=== PATIENT | male | born 1970 | race Caucasian/White ===

== ENCOUNTER 2022-11-05 09:05 | Day surgery (SDC) | payer OTHER ==
[~2022-11-05] VITALS: Ht 182.9 cm; Wt 118.0 kg
[~2022-11-05 09:05] MED LIST: IBUP600 PO; META800 PO
[2022-11-05] MEDS ORDERED: LOSA25 (09:45)
[2022-11-05] MEDS ORDERED: MONT4 (09:45)
== END 2022-11-05 11:53 | disposition home or self-care (01) ==
LOC: ORSCSDS 09:05
PROVIDERS: Internal Medicine Gastroenterology
PROC: 0DBH8ZX Excision of Cecum, Via Natural or Artificial Opening Endoscopic, Diagnostic (ICD-10-PCS; principal; 2022-11-05 10:30)
DX: Z12.11 Encounter for screening for malignant neoplasm of colon (principal); D12.0 Benign neoplasm of cecum; K57.30 Diverticulosis of large intestine without perforation or abscess without bleeding; Z79.899 Other long term (current) drug therapy
CPT/HCPCS: 88305; J2704; J7120

== ENCOUNTER 2024-09-28 20:26 | Emergency (ER) | payer OTHER ==
[~2024-09-28] VITALS: Ht 182.9 cm; Wt 117.9 kg
[~2024-09-28 20:26] MED LIST changes: +LOSA25; +MONT4
[2024-09-28 21:34] LABS: BASOPHILS PERCENT AUTO 1 % (0-2); EOSINOPHILS ABSOLUTE AUTO 0.74 K/mm3 (0.00-0.68); EOSINOPHILS PERCENT AUTO 7 % (0-6); Hematocrit 49.6 % (37.0-53.0); Hemoglobin 16.7 g/dL (13.5-17.5); IMMATURE GRAN ABSOLUTE AUTO 0.04 K/mm3 (0.00-0.10); IMMATURE GRAN PERCENT AUTO 0 % (0-1); LYMPHOCYTES ABSOLUTE AUTO 3.12 K/mm3 (0.84-5.20); LYMPHOCYTES PERCENT AUTO 31 % (21-46); MONOCYTES ABSOLUTE AUTO 0.74 K/mm3 (0.16-1.47); MONOCYTES PERCENT AUTO 7 % (4-13); Mean Corpuscular HGB 29.4 pg (26.0-34.0); Mean Corpuscular HGB Conc 33.7 g/dL (31.5-36.5); Mean Corpuscular Volume 87 fL (80-100); Mean Platelet Volume 10.4 fL (9.1-12.4); NEUTROPHILS ABSOLUTE AUTO 5.34 K/mm3 (1.96-9.15); NEUTROPHILS PERCENT AUTO 53 % (41-73); Platelet Count 248 K/mm3 (150-400); RDW Coefficient Variation 12.7 % (11.7-14.2); RDW Standard Deviation 40.4 fL (35.1-46.3); Red Blood Cell Count 5.68 M/mm3 (4.30-5.90); White Blood Cell Count 10.08 K/mm3 (4.00-11.30)
[2024-09-28 21:59] LABS: Albumin, Blood 3.8 g/dL (3.4-5.0); Albumin/Globulin Ratio 1.2 (0.8-1.8); Bilirubin, Total 0.8 mg/dL (0.1-1.0); Bun/Creatinine Ratio 15.6 (12.0-20.0); Calcium, Blood 8.4 mg/dL (8.5-10.1); Creatinine, Blood 0.96 mg/dL (0.60-1.20); Free Thyroxine 1.12 ng/dL (0.70-1.60); Globulin, Blood 3.2 g/dL (2.2-4.0); Potassium, Blood 4.1 mmol/L (3.5-5.5); Thyroid Stimulating Hormone 3.78 uIU/mL (0.360-4.800)
[2024-09-28 22:24] LABS: Magnesium, Blood 2.4 mg/dL (1.6-2.4)
[2024-09-28 23:00] VITALS: BP 146/79
== END 2024-09-28 23:23 | disposition home or self-care (01) ==
LOC: ER 20:26
PROVIDERS: Student in an Organized Health Care Education/Training Program
DX: R00.8 Other abnormalities of heart beat (principal); R00.1 Bradycardia, unspecified; I10 Essential (primary) hypertension; Z79.899 Other long term (current) drug therapy; Z59.89 Other problems related to housing and economic circumstances
CPT/HCPCS: 71045; 80053; 83735; 84439; 84443; 84484; 85025; 93005; 93010; 99284-25